=== PATIENT | male | born 1945 | race Caucasian/White ===

== ENCOUNTER 2022-07-21 05:13 | Emergency (ER) | payer MEDICARE, BC, OTHER ==
[~2022-07-21] VITALS: Ht 177.8 cm; Wt 83.0 kg
[2022-07-21] MEDS ORDERED: METFORMIN500 M2 PO (06:05)
[2022-07-21] MEDS ORDERED: AMOXICILLIN500 MG PO (06:12)
[2022-07-21 06:46] VITALS: BP 150/96
== END 2022-07-21 06:48 | disposition home or self-care (01) ==
LOC: ED 05:13
PROC: 0HQEXZZ Repair Left Lower Arm Skin, External Approach (ICD-10-PCS; principal; 2022-07-21)
DX: L76.21 Postprocedural hemorrhage of skin and subcutaneous tissue following a dermatologic procedure (principal); I10 Essential (primary) hypertension; Y84.8 Other medical procedures as the cause of abnormal reaction of the patient, or of later complication, without mention of misadventure at the time of the procedure; Z85.828 Personal history of other malignant neoplasm of skin